=== PATIENT | male | born 1985 | race Caucasian/White ===

== ENCOUNTER 2018-07-15 15:57 | Emergency (ER) | payer BC ==
[2018-07-15] MEDS ORDERED: HYDROcodone 7.5MG/APAP 325MG 1 EA TAB PO ONE (16:19)
[2018-07-15] MEDS ORDERED: CYCLOBENZAPRINE HCL 5 MG TAB PO ONE (16:19)
[2018-07-15] MEDS ORDERED: KETOROLAC TROMETHAMINE INJ 30 MG/ML VIAL IM ONE (16:19)
[2018-07-15 17:20] VITALS: TEMP 99.9
--- NOTE | 2018-07-15 17:51 | RAD ---
EXAM DESCRIPTION: Chest,2 Views CLINICAL HISTORY: 33 years Male henson/cp COMPARISON: None TECHNIQUE: Two view study of the chest was performed. FINDINGS: Decreased inspiration with apparent mild cardiac enlargement Central vessels are not increased. Mild airspace opacity no consolidation. No pneumothorax. IMPRESSION: Decreased inspiration with apparent mild cardiac enlargement. No evidence for congestive heart failure. Minimal atelectatic change versus early infiltrate lower lungs bilaterally. Electronically signed by: Catherine Mcintyre MD 07/15/2018 5:49 PM CDT
--- NOTE | 2018-07-15 18:57 | ED.PDOC ---
History of Present Illness - General Chief Complaint: Chest Pain/ND Stated Complaint: Chest pressure, headache Time Seen by Provider: 07/15/18 15:59 Source: patient Exam Limitations: no limitations - History of Present Illness Initial Comments: the patient is a 33-year-old male presenting to the emergency room secondary to a constellation of symptoms. Symptoms started this morning when he woke up with some nausea and he did throw up one time. He is no longer nauseated. No abdominal pain. He does have a fever here currently. He has had a runny nose and a bit of a cough. What brought him in and actually was right- sided neck discomfort extending up into a headache and down into his right shoulder and arm and anterior right chest. He does have palpable muscle spasm in these areas. Nares are reddened with clear rhinorrhea. Ear canals are clear. No trauma recently. No step-offs. No bruising. Timing/Duration: 24 hours Severity: moderate Improving Factors: nothing Worsening Factors: nothing Associated Symptoms: denies symptoms Allergies/Adverse Reactions: Allergies NO KNOWN ALLERGY Allergy (Verified 07/15/18 16:03) Home Medications: Ambulatory Orders Amoxicillin & Pot Clavulanate [Augmentin Tab] 875 mg PO BID #10 tab 07/15/18 Cyclobenzaprine HCl [Flexeril] 10 mg PO TID PRN #20 tab 07/15/18 Losartan Potassium 100 mg PO DAILY 07/15/18 Review of Systems - Review of Systems Constitutional: States: fever, malaise EENTM: States: nose congestion Respiratory: States: cough Cardiology: States: chest pain Gastrointestinal/Abdominal: States: nausea Genitourinary: States: no symptoms reported Musculoskeletal: States: back pain, muscle pain, neck pain Skin: States: no symptoms reported Neurological: States: headache Endocrine: States: no symptoms reported All other Systems: No Change from Baseline Past Medical History (General) - Patient Medical History Hx Stroke: No Hx Congestive Heart Failure: No Hx Hypertension: Yes Hx Diabetes: No Hx MRSA: No - Vaccination History Hx Tetanus, Diphtheria Vaccination: No Hx Influenza Vaccination: No Hx Pneumococcal Vaccination: No - Social History Hx Tobacco Use: No Hx Alcohol Use: No Family Medical History - Family History Father Living Status: Still Living Hx Family Stroke: Yes Hx Cardiac Disease: Yes Hx Family Diabetes: Yes Physical Exam - Physical Exam General Appearance: Alert, Other - he does appear uncomfortable Eye Exam: bilateral normal Ears, Nose, Throat: hearing grossly normal, nasal congestion Neck: other - no midline tenderness. 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 The patient is having significant myalgias of the paracervical muscles on the right side. He had some nausea this morning. He does appear to have mild cough. Chest x-ray shows what is most likely atelectasis however infiltrate cannot be ruled out. Laboratory work appears to be reassuring and the patient has tested negative for influenza. A bacterial source for infection cannot definitively be ruled out so the patient is going to be placed on Augmentin for 5 days. He needs to keep himself well hydrated. Motrin can be used 3 times a day for the next few days to reduce myalgias and control any fever. He will also be written for mild muscle relaxer to take as needed. Topical heat and stretching exercises may also prove beneficial. ER warnings were given. Follow-up early next week with primary care doctor otherwise. - Results/Orders Results/Orders: 07/15/18 17:39 BLOOD CULTURE Stat Laboratory Results - last 24 hr 07/15/18 07/15/18 07/15/18 16:22 17:39 17:39 WBC Cancelled RBC Cancelled Hgb Cancelled Hct Cancelled MCV Cancelled MCH Cancelled MCHC Cancelled RDW Cancelled Plt Count Cancelled MPV Cancelled Absolute Neuts (auto) Cancelled Absolute Lymphs (auto) Cancelled Absolute Monos (auto) Cancelled Absolute Eos (auto) Cancelled Absolute Basos (auto) Cancelled Neutrophils % Cancelled Lymphocytes % Cancelled Monocytes % Cancelled Eosinophils % Cancelled Basophils % Cancelled Differential Comment Cancelled RBC Morphology Cancelled Sodium 136 Potassium 3.9 Chloride 101 Carbon Dioxide 24 Anion Gap 14.9 BUN 14 Creatinine 0.85 BUN/Creatinine Ratio 16.5 POC Glucose 76 Random Glucose 95 Serum Osmolality 272.2 L Calcium 9.1 Magnesium 1.9 Total Bilirubin 0.7 AST 32 ALT 59 Alkaline Phosphatase 50 Creatine Kinase 135 CK-MB (CK-2) 0.8 CK-MB (CK-2) % 0.59 Troponin I < 0.02 B-Natriuretic Peptide < 5.0 Serum Total Protein 7.5 Albumin 4.2 Globulin 3.3 Albumin/Globulin Ratio 1.3 TSH 1.37 07/15/18 17:50 WBC 7.9 RBC 5.28 Hgb 15.8 Hct 46.8 MCV 88.7 MCH 30.0 MCHC 33.8 RDW 13.2 Plt Count 265 MPV 7.7 Absolute Neuts (auto) 6.00 Absolute Lymphs (auto) 1.20 Absolute Monos (auto) 0.70 Absolute Eos (auto) 0.00 Absolute Basos (auto) 0.00 Neutrophils % 76.0 Lymphocytes % 14.9 L Monocytes % 8.3 Eosinophils % 0.4 L Basophils % 0.4 Differential Comment RBC Morphology Sodium Potassium Chloride Carbon Dioxide Anion Gap BUN Creatinine BUN/Creatinine Ratio POC Glucose Random Glucose Serum Osmolality Calcium Magnesium Total Bilirubin AST ALT Alkaline Phosphatase Creatine Kinase CK-MB (CK-2) CK-MB (CK-2) % Troponin I B-Natriuretic Peptide Serum Total Protein Albumin Globulin Albumin/Globulin Ratio TSH Departure - Departure Clinical Impression: Viral syndrome, Myalgia Disposition: Discharge to Home or Self Care Condition: Fair Departure Forms: ED Discharge - Pt. Copy, Patient Portal Self Enrollment Instructions: Viral Syndrome (DC) Diet: regular diet Activity: increase activity as tolerated Referrals: NICOLE MURPHY [Primary Care Provider] - 1-5 Days Prescriptions: Amoxicillin & Pot Clavulanate [Augmentin Tab] 875 mg PO BID #10 tab Cyclobenzaprine HCl [Flexeril] 10 mg PO TID PRN #20 tab PRN Reason: Muscle Spasms Home Medications: Ambulatory Orders Amoxicillin & Pot Clavulanate [Augmentin Tab] 875 mg PO BID #10 tab 07/15/18 Cyclobenzaprine HCl [Flexeril] 10 mg PO TID PRN #20 tab 07/15/18 Losartan Potassium 100 mg PO DAILY 07/15/18 Additional Instructions: the patient is a 33-year-old male presenting to emergency room with what is most likely a viral syndrome. The patient is having significant myalgias of the paracervical muscles on the right side. He had some nausea this morning. He does appear to have mild cough. Chest x-ray shows what is most likely atelectasis however infiltrate cannot be ruled out. Laboratory work appears to be reassuring and the patient has tested negative for influenza. A bacterial source for infection cannot definitively be ruled out so the patient is going to be placed on Augmentin for 5 days. He needs to keep himself well hydrated. Motrin can be used 3 times a day for the next few days to reduce myalgias and control any fever. He will also be written for mild muscle relaxer to take as needed. Topical heat and stretching exercises may also prove beneficial. ER warnings were given. Follow-up early next week with primary care doctor otherwise.
[2018-07-15] MEDS ORDERED: predniSONE 20 MG TAB PO ONE (18:59)
[2018-07-15] MEDS ORDERED: AMOXICILLIN & POT CLAVULANATE 875 MG TAB PO ONE (19:03)
[2018-07-15 19:13] VITALS: BP 130/81; O2SAT 97
== END 2018-07-15 19:13 | disposition home or self-care (01) ==
LOC: ER 15:57
DX: B34.9 Viral infection, unspecified (principal); M79.10 Myalgia, unspecified site; R07.89 Other chest pain; I10 Essential (primary) hypertension; Z79.899 Other long term (current) drug therapy
CPT/HCPCS: 36415; 36416; 71046; 80053; 82550; 82553; 82948; 83735; 83880; 84443; 84484; 85025; 87040; 87502; 93005; J1885; J7512